=== PATIENT | female | born 1985 | race Caucasian/White ===

== ENCOUNTER 2023-11-08 15:30 | Outpatient (CLI) | payer SELFPAY ==
--- NOTE | 2023-11-08 | XRR_ITS ---
PROCEDURE INFORMATION: Exam: XR Acromioclavicular Joints Exam date and time: 11/08/2023 4:17 PM Age: 38 years old Clinical indication: Right; Patient HX: RT shoulder pain with limited rom post fall TECHNIQUE: Imaging protocol: Radiologic exam of the acromioclavicular joints. Views: Bilateral exam. COMPARISON: CR XR shoulder RT min 2V* [id number] 11/08/2023 4:17 PM FINDINGS: Bones/joints: No acute fracture. Mild increased coracoclavicular distance when compared to contralateral side. There is mild right-sided widening of the right acromioclavicular joint when compared to the left. Soft tissues: Normal. XR/[place] [id number] IMPRESSION: Minimal widening of the right AC joint and coracoclavicular distance. No acute fracture.
--- NOTE | 2023-11-08 | XRR_ITS ---
PROCEDURE INFORMATION: Exam: XR Right Shoulder Exam date and time: 11/08/2023 4:17 PM Age: 38 years old Clinical indication: Right; Patient HX: RT shoulder pain with limited rom post fall TECHNIQUE: Imaging protocol: Radiologic exam of the right shoulder. Views: 2 or more views. COMPARISON: [place] [id number] 11/08/2023 4:17 PM FINDINGS: Bones/joints: Normal. Soft tissues: Normal. XR/XR shoulder RT min 2V* [id number] IMPRESSION: No acute findings.
== END 2023-11-08 15:31 | disposition home or self-care (01) ==
PROVIDERS: Visit Provider Family Medicine
DX: M25.511 Pain in right shoulder (principal)
CPT/HCPCS: 73030; 73050